=== PATIENT | female | born 1975 | race Hispanic/Latino ===

== ENCOUNTER 2020-11-09 10:01 | Inpatient (IN) | payer SELFPAY ==
[~2020-11-09] VITALS: Ht 152.4 cm; Wt 56.8 kg
[~2020-11-09 10:01] MED LIST: AMOX-429 PO; LISI20TA24 PO
[2020-11-09] MEDS ORDERED: ONDANSETRON HCL 4 MG/2 ML VIAL ONE ×2 (10:40→19:54)
[2020-11-09] MEDS ORDERED: MORPHINE SULFATE 4 MG/1ML SYG ONE ×2 (10:41→13:57)
[2020-11-09 10:44] LABS: BASOPHILS % (AUTO) 0.1 % (0.0-5.0); EOSINOPHILS % (AUTO) 0.9 % (0.0-8.0); HEMATOCRIT 39.4 % (36-48); MEAN CORPUSCULAR HEMOGLOBIN 31.3 pg (27.0-33.0); MEAN CORPUSCULAR HGB CONC 34.3 g/dL (32.0-36.0); MEAN CORPUSCULAR VOLUME 91.4 fL (79-99); MONOCYTES % (AUTO) 3.3 % (3.0-13.0); NEUTROPHILS % (AUTO) 86.3 % (40.0-77.0); PLATELET COUNT (AUTO) 322 K/uL (130-400); RED BLOOD CELL COUNT(AUTO) 4.31 MIL/uL (4.00-5.50); RED CELL DISTRIBUTION WIDTH 12.1 % (11.0-15.5); WHITE BLOOD COUNT (AUTO) 18.4 K/uL (4.8-10.8)
[2020-11-09] MEDS ORDERED: SODIUM CHLORIDE 0.9% 1000ML 1,000 ML IV ONE (10:45)
[2020-11-09 10:56] LABS: APPEARANCE,URINE Clear (CLEAR); BILIRUBIN,URINE Negative (NEGATIVE); COLOR,URINE Yellow (YELLOW); GLUCOSE, URINE (UA) Negative (NEGATIVE); KETONES,URINE Trace mg/dL (NEGATIVE); LEUKOCYTE ESTERASE ,URINE Negative (NEGATIVE); NITRATE,URINE Negative (NEGATIVE); OCCULT BLOOD,URINE Negative (NEGATIVE); PROTEIN,URINE Negative (NEGATIVE); UROBILINOGEN,URINE 0.2 mg/dL (0.2-1.0)
[2020-11-09 10:58] LABS: HCG,QUAL RESULT NEGATIVE (NEGATIVE)
[2020-11-09 11:16] LABS: CREATININE 0.7 mg/dL (0.5-1.5)
[2020-11-09 11:20] LABS: ALBUMIN 4.1 g/dL (3.5-5.0); BILIRUBIN,TOTAL 0.9 mg/dL (0.2-1.0); TOTAL PROTEIN, SERUM 8.4 g/dL (6.0-8.3)
[2020-11-09] MEDS ORDERED: ZOSYN 3.375GM+NS 50ML 50 ML IV ONE ×2 (11:33→19:55)
[2020-11-09 11:47] LABS: BACTERIA,URINE Rare /HPF (None Seen); RBC,URINE 0-1 /HPF (0-1); WBC,URINE 0-1 /HPF (0-1)
[2020-11-09 11:48] LABS: SQUAMOUS EPITHELIAL CELL,UR Rare /HPF (0-2)
[2020-11-09] MEDS ORDERED: IOHEXOL-350 75 ML VIAL IV ONE (13:07)
[2020-11-09] MEDS ORDERED: ACETAMINOPHEN 325 MG TAB PO PRN (17:45)
[2020-11-09] MEDS ORDERED: ONDANSETRON HCL 4 MG/2 ML VIAL IVP PRN (17:45)
[2020-11-09] MEDS ORDERED: MORPHINE SULFATE 2 MG/ML 1ML SYG ONE (19:55)
[2020-11-10] MEDS ORDERED: MORPHINE SULFATE 2 MG/ML 1ML SYG ONE ×2 (00:22→04:17)
[2020-11-10] MEDS ORDERED: KETOROLAC TROMETHAMINE 15MG/ML IM PRN (02:15)
[2020-11-10] MEDS: SODIUM CHLORIDE 0.9% 1000ML 1,000 ML IV SCH ×2 (03:45→13:57)
[2020-11-10] MEDS ORDERED: ZOSYN 3.375GM+NS 50ML 50 ML IV ONE (04:16)
[2020-11-10 04:29] LABS: AMPHET/METH SCREEN,URINE NEGATIVE (NEGATIVE); BARBITURATE SCREEN, URINE NEGATIVE (NEGATIVE); BENZODIAZEPINES SCREEN,URINE NEGATIVE (NEGATIVE); CANNABINOID SCREEN,URINE NEGATIVE (NEGATIVE); COCAINE SCREEN,URINE POSITIVE (NEGATIVE); OPIATE SCREEN,URINE NEGATIVE (NEGATIVE); PHENCYCLIDINE SCREEN,URINE NEGATIVE (NEGATIVE)
[2020-11-10 04:33] LABS: BASOPHILS % (AUTO) 0.1 % (0.0-5.0); EOSINOPHILS % (AUTO) 3.2 % (0.0-8.0); HEMATOCRIT 30.7 % (36-48); MEAN CORPUSCULAR HEMOGLOBIN 31.8 pg (27.0-33.0); MEAN CORPUSCULAR HGB CONC 34.2 g/dL (32.0-36.0); MONOCYTES % (AUTO) 6.2 % (3.0-13.0); NEUTROPHILS % (AUTO) 54.1 % (40.0-77.0); PLATELET COUNT (AUTO) 244 K/uL (130-400); RED CELL DISTRIBUTION WIDTH 12.3 % (11.0-15.5); WHITE BLOOD COUNT (AUTO) 7.7 K/uL (4.8-10.8)
[2020-11-10 04:41] LABS: CREATININE 0.6 mg/dL (0.5-1.5); POTASSIUM 3.1 mmol/L (3.5-5.1)
[2020-11-10 04:46] LABS: CRP QUANTITATIVE 23.9 mg/L (0.00-9.0)
[2020-11-10] MEDS ORDERED: POTASSIUM CHLORIDE 20MEQ/100ML 100 ML IV PRN (08:00)
[2020-11-10] MEDS ORDERED: POTASSIUM CHLORIDE 20 MEQ ERTAB PO PRN (08:00)
[2020-11-10 08:25] VITALS: BP 97/56
[2020-11-10] MEDS: POTASSIUM CHLORIDE 10% ELIXIR 20 MEQ/15 ML UDCUP PO PRN ×3 (08:47→16:57)
[2020-11-10] MEDS: ZOSYN 3.375GM+NS 50ML 50 ML IV SCH ×2 (09:38→12:04)
[2020-11-10 10:26] LABS: ALANINE AMINOTRANSFERASE 17 U/L (12-78); ASPARTATE AMINOTRANSFERASE 18 U/L (10-37); BILIRUBIN,DIRECT < 0.1 mg/dL (0.0-0.3); BILIRUBIN,TOTAL 0.3 mg/dL (0.2-1.0); TOTAL PROTEIN, SERUM 5.7 g/dL (6.0-8.3)
[2020-11-10] MEDS: MORPHINE SULFATE 2 MG/ML 1ML SYG IVP PRN ×3 (10:35→23:33)
[2020-11-10 11:13] VITALS: BP 83/44
[2020-11-10 16:05] VITALS: BP 91/53
[2020-11-10 19:52] VITALS: BP 105/68
[2020-11-10 23:03] VITALS: BP 93/53
[2020-11-11] MEDS: ZOSYN 3.375GM+NS 50ML 50 ML IV SCH ×2 (02:02→10:00)
[2020-11-11 03:15] VITALS: BP 82/56
[2020-11-11] MEDS: SODIUM CHLORIDE 0.9% 1000ML 1,000 ML IV SCH ×2 (04:43→09:45)
[2020-11-11] MEDS: MORPHINE SULFATE 2 MG/ML 1ML SYG IVP PRN (05:59)
[2020-11-11 06:18] LABS: BASOPHILS % (AUTO) 0.2 % (0.0-5.0); EOSINOPHILS % (AUTO) 3.2 % (0.0-8.0); HEMATOCRIT 28.8 % (36-48); LYMPHOCYTES % (AUTO) 55.1 % (21.0-51.0); MEAN CORPUSCULAR HEMOGLOBIN 31.2 pg (27.0-33.0); MEAN CORPUSCULAR HGB CONC 33.3 g/dL (32.0-36.0); MEAN CORPUSCULAR VOLUME 93.5 fL (79-99); NEUTROPHILS % (AUTO) 32.3 % (40.0-77.0); PLATELET COUNT (AUTO) 209 K/uL (130-400); RED BLOOD CELL COUNT(AUTO) 3.08 MIL/uL (4.00-5.50); RED CELL DISTRIBUTION WIDTH 12.4 % (11.0-15.5); WHITE BLOOD COUNT (AUTO) 6.2 K/uL (4.8-10.8)
[2020-11-11 06:31] LABS: ALBUMIN 2.7 g/dL (3.5-5.0); BILIRUBIN,TOTAL 0.4 mg/dL (0.2-1.0); CREATININE 0.7 mg/dL (0.5-1.5); POTASSIUM 3.1 mmol/L (3.5-5.1); TOTAL PROTEIN, SERUM 5.6 g/dL (6.0-8.3)
[2020-11-11] MEDS ORDERED: POTASSIUM CHLORIDE 10% ELIXIR 20 MEQ/15 ML UDCUP PO SCH (07:15)
[2020-11-11 07:58] VITALS: BP 85/42
== END 2020-11-11 13:55 | disposition home or self-care (01) | DRG 446 ==
LOC: EDH 10:01 → OBSVTOIN 10:02 → EDHIP 10:02 → 3BH 11-10 08:05
PROVIDERS: ADMIT Family Medicine; ATTEND Family Medicine
DX: K83.09 Other cholangitis (principal); Z20.822 Contact with and (suspected) exposure to COVID-19; I10 Essential (primary) hypertension; F43.10 Post-traumatic stress disorder, unspecified; D72.829 Elevated white blood cell count, unspecified; F17.200 Nicotine dependence, unspecified, uncomplicated; Z90.49 Acquired absence of other specified parts of digestive tract; Z83.3 Family history of diabetes mellitus
CPT/HCPCS: 36415; 74177; 76705; 80048; 80053; 80076; 80305; 81001; 81025; 82150; 82550; 83605; 83690; 83735; 84145; 85025; 86140; 87040; 87426; 93005; G0378; J1885; J2270; J2405; J2543; J7030; Q9967; U0003

== ENCOUNTER 2021-12-16 13:15 | Inpatient (IN) | payer OTHER ==
[~2021-12-16] VITALS: Ht 152.4 cm; Wt 54.7 kg
[~2021-12-16 13:15] MED LIST changes: -AMOX-429 PO
[2021-12-16] MEDS ORDERED: ALBUTEROL 0.083% 2.5 MG/3 ML INH IH ONE ×2 (13:44→14:00)
[2021-12-16] MEDS ORDERED: IPRATROPIUM/ALBUTEROL SULFATE 3 ML SOLUTION IH ONE ×2 (13:44→14:00)
[2021-12-16 14:00] LABS: BASOPHILS % (AUTO) 0.2 % (0.0-5.0); EOSINOPHILS % (AUTO) 0.4 % (0.0-8.0); HEMATOCRIT 42.7 % (36-48); LYMPHOCYTES % (AUTO) 10.4 % (21.0-51.0); MEAN CORPUSCULAR HEMOGLOBIN 31.6 pg (27.0-33.0); MEAN CORPUSCULAR HGB CONC 33.5 g/dL (32.0-36.0); MEAN CORPUSCULAR VOLUME 94.3 fL (79-99); MONOCYTES % (AUTO) 1.1 % (3.0-13.0); NEUTROPHILS % (AUTO) 87.2 % (40.0-77.0); PLATELET COUNT (AUTO) 317 K/uL (130-400); RED BLOOD CELL COUNT(AUTO) 4.53 MIL/uL (4.00-5.50); RED CELL DISTRIBUTION WIDTH 12.3 % (11.0-15.5)
[2021-12-16] MEDS ORDERED: KETOROLAC 30MG VIAL (30MG/ML) IV ONE (14:00)
[2021-12-16] MEDS ORDERED: AMOX/CLAV 875/125MG TAB PO ONE (14:00)
[2021-12-16] MEDS ORDERED: LACTATED RINGERS 1000ML 1,000 ML IV ONE ×2 (14:00→15:59)
[2021-12-16] MEDS ORDERED: AZITHROMYCIN 250 MG TABLET PO ONE ×2 (14:00→15:49)
[2021-12-16] MEDS ORDERED: ACETAMINOPHEN 500 MG TABLET PO ONE (14:00)
[2021-12-16] MEDS ORDERED: CYCLOBENZAPRINE HCL 10 MG TABLET PO ONE (14:00)
[2021-12-16] MEDS ORDERED: ONDANSETRON 4MG INJ IVP ONE (14:00)
[2021-12-16] MEDS ORDERED: GUAIFENESIN-DM 200/20 MG 10 ML PO ONE (14:00)
[2021-12-16 14:11] LABS: CREATININE 0.7 mg/dL (0.5-1.5); POTASSIUM 3.4 mmol/L (3.5-5.1)
[2021-12-16 14:15] LABS: ALBUMIN 3.1 g/dL (3.5-5.0); BILIRUBIN,TOTAL 0.3 mg/dL (0.2-1.0); TOTAL PROTEIN, SERUM 6.4 g/dL (6.0-8.3)
[2021-12-16] MEDS ORDERED: ASPIRIN 325MG TAB ONE (14:24)
[2021-12-16] MEDS ORDERED: NITROGLYCERIN 1GM OINT 1 INCH/1GM TD ONE (14:30)
[2021-12-16] MEDS ORDERED: ASPIRIN 325MG TAB PO ONE (14:30)
[2021-12-16] MEDS ORDERED: POTASSIUM BICARB/CIT AC 25 MEQ TABLET.EFF PO ONE (15:00)
[2021-12-16 15:01] LABS: APPEARANCE,URINE Clear (CLEAR); BILIRUBIN,URINE Negative (NEGATIVE); COLOR,URINE Yellow (YELLOW); GLUCOSE, URINE (UA) Negative (NEGATIVE); KETONES,URINE Negative (NEGATIVE); LEUKOCYTE ESTERASE ,URINE Trace (NEGATIVE); NITRATE,URINE Negative (NEGATIVE); OCCULT BLOOD,URINE Negative (NEGATIVE); PH,URINE 5.5 (5.0-8.0); PROTEIN,URINE Negative (NEGATIVE); UROBILINOGEN,URINE 0.2 mg/dL (0.2-1.0)
[2021-12-16 15:06] LABS: AMPHET/METH SCREEN,URINE NEGATIVE (NEGATIVE); BARBITURATE SCREEN, URINE NEGATIVE (NEGATIVE); BENZODIAZEPINES SCREEN,URINE NEGATIVE (NEGATIVE); CANNABINOID SCREEN,URINE NEGATIVE (NEGATIVE); COCAINE SCREEN,URINE POSITIVE (NEGATIVE); OPIATE SCREEN,URINE NEGATIVE (NEGATIVE); PHENCYCLIDINE SCREEN,URINE NEGATIVE (NEGATIVE)
[2021-12-16 15:11] LABS: BACTERIA,URINE Rare /HPF (None Seen); MUCUS,URINE Rare LPF (None Seen); RBC,URINE 0-1 /HPF (0-1); SQUAMOUS EPITHELIAL CELL,UR Few /HPF (0-2); WBC,URINE 0-1 /HPF (0-1)
[2021-12-16] MEDS ORDERED: LORAZEPAM 2 MG/ML 1 ML VIAL IVP ONE (15:30)
[2021-12-16] MEDS ORDERED: CYCLOBENZAPRINE HCL 10 MG TABLET ONE (15:47)
[2021-12-16] MEDS ORDERED: ONDANSETRON 4MG INJ ONE (15:47)
[2021-12-16] MEDS ORDERED: ACETAMINOPHEN 500 MG TABLET ONE (15:49)
[2021-12-16] MEDS: CEFTRIAXONE 1G VIAL ONE ×2 (15:56→16:02)
[2021-12-16] MEDS ORDERED: CEFTRIAXONE 1G VIAL IVP ONE (16:00)
[2021-12-16 16:48] LABS: THYROID STIMULATING HORMONE 0.85 uIU/mL (0.36-3.74)
[2021-12-16] MEDS ORDERED: PANTOPRAZOLE 40 MG/VIAL IVP ONE (17:30)
[2021-12-16] MEDS ORDERED: SODIUM CHLORIDE 3% FOR INHALATION 4 ML/AMP VIAL.NEB IH ONE (18:46)
[2021-12-16] MEDS: PANTOPRAZOLE 40 MG TAB DR PO SCH (19:13)
[2021-12-16] MEDS ORDERED: MIDODRINE HCL 5 MG TABLET PO SCH (20:00)
[2021-12-16] MEDS ORDERED: CEFEPIME HCL 2 GM VIAL IVP SCH (21:00)
[2021-12-16] MEDS ORDERED: DOXYCYCLINE HYCLATE 100 MG TABLET PO SCH (21:00)
[2021-12-16] MEDS ORDERED: NOREPINEPHRIN 4MG/NS 250ML 250 ML IV ONE (21:02)
[2021-12-16] MEDS ORDERED: NOREPINEPHRIN 4MG/NS 250ML 250 ML IV SCH (21:30)
[2021-12-16] MEDS ORDERED: PHENYLEPHRINE HCL 10 MG in 0.9% NACL 250ML 250 ML IV PRN (21:30)
[2021-12-16] MEDS ORDERED: 0.9%NACL 100ML 100 ML ONE (21:37)
[2021-12-16] MEDS: LACTATED RINGERS 1000ML 1,000 ML IV SCH (21:51)
[2021-12-16 22:41] VITALS: BP 133/77
[2021-12-16 22:46] VITALS: BP 125/75
[2021-12-16 23:01] VITALS: BP 125/75
[2021-12-16 23:16] VITALS: BP 156/63
[2021-12-16 23:31] VITALS: BP 120/79
[2021-12-16 23:46] VITALS: BP 121/75
[2021-12-17] VITALS (68 sets, daily range): BP systolic 90–133; BP diastolic 49–76
[2021-12-17] MEDS: LACTATED RINGERS 1000ML 1,000 ML IV SCH ×2 (05:33→14:02)
[2021-12-17 06:10] LABS: BASOPHILS % (AUTO) 0.3 % (0.0-5.0); EOSINOPHILS % (AUTO) 0.5 % (0.0-8.0); HEMATOCRIT 33.8 % (36-48); MEAN CORPUSCULAR HEMOGLOBIN 32.4 pg (27.0-33.0); MEAN CORPUSCULAR HGB CONC 33.7 g/dL (32.0-36.0); MONOCYTES % (AUTO) 3.3 % (3.0-13.0); NEUTROPHILS % (AUTO) 74.4 % (40.0-77.0); PLATELET COUNT (AUTO) 296 K/uL (130-400); RED BLOOD CELL COUNT(AUTO) 3.52 MIL/uL (4.00-5.50); RED CELL DISTRIBUTION WIDTH 12.7 % (11.0-15.5); WHITE BLOOD COUNT (AUTO) 17.3 K/uL (4.8-10.8)
[2021-12-17 06:42] LABS: ALBUMIN 2.7 g/dL (3.5-5.0); BILIRUBIN,TOTAL 1.1 mg/dL (0.2-1.0); CREATININE 0.5 mg/dL (0.5-1.5); POTASSIUM 3.5 mmol/L (3.5-5.1); TOTAL PROTEIN, SERUM 5.8 g/dL (6.0-8.3)
[2021-12-17] MEDS ORDERED: SODIUM CHLORIDE 3% FOR INHALATION 4 ML/AMP VIAL.NEB IH ONE (06:50)
[2021-12-17 07:52] LABS: HEMOGLOBIN A1C 5.2 % (4.0-6.0)
[2021-12-17 08:00] LABS: B-TYPE NATRIURETIC PEPTIDE 10 pg/mL (0-100)
[2021-12-17] MEDS ORDERED: LORAZEPAM 2 MG/ML 1 ML VIAL IVP PRN (08:00)
[2021-12-17] MEDS ORDERED: DIAZEPAM 5 MG TABLET PO PRN (08:00)
[2021-12-17] MEDS ORDERED: 0.9% NACL 500ML IV.SOLN 500 ML IV ONE (08:00)
[2021-12-17 08:46] LABS: ERYTHROCYTE SEDIMENTATION RATE 8 MM/HR (0-20)
[2021-12-17] MEDS ORDERED: M.V.I. IV [ADULT] 10 ML, FOLIC ACID 1 MG, THIAMINE HCL 100 MG in 0.9%NACL 1000ML 1,000 ML IV SCH (09:00)
[2021-12-17] MEDS ORDERED: THIAMINE HCL 100 MG TABLET PO SCH (09:00)
[2021-12-17] MEDS ORDERED: MULTIVITAMIN TABLET PO SCH (09:00)
[2021-12-17] MEDS: PANTOPRAZOLE 40 MG TAB DR PO SCH (09:14)
[2021-12-17] MEDS: MIDODRINE HCL 5 MG TABLET PO SCH ×2 (09:15→14:02)
[2021-12-17] MEDS ORDERED: FOLIC ACID 1 MG TABLET PO SCH (09:30)
[2021-12-17] MEDS ORDERED: LACTULOSE 20 GM/30 ML UDCUP PO PRN (13:00)
[2021-12-17] MEDS ORDERED: THIA100T91 PO (16:47)
[2021-12-17] MEDS ORDERED: FOLI1 PO (16:47)
[2021-12-17] MEDS ORDERED: MVIT PO (16:47)
[2021-12-17] MEDS ORDERED: BUPR150T8 PO (17:08)
[2021-12-18] MEDS ORDERED: FOLIC ACID 1 MG TABLET PO SCH (09:00)
== END 2021-12-17 18:00 | disposition home or self-care (01) | DRG 871 ==
LOC: EDH 13:15 → EDHIP 13:16 → 2CH 22:31
PROVIDERS: ADMIT Internal Medicine; ATTEND Internal Medicine
DX: A41.9 Sepsis, unspecified organism (principal); E43 Unspecified severe protein-calorie malnutrition; J96.01 Acute respiratory failure with hypoxia; R65.21 Severe sepsis with septic shock; N39.0 Urinary tract infection, site not specified; E72.20 Disorder of urea cycle metabolism, unspecified; A15.0 Tuberculosis of lung; Z68.23 Body mass index [BMI] 23.0-23.9, adult; Z20.822 Contact with and (suspected) exposure to COVID-19; F43.10 Post-traumatic stress disorder, unspecified; E86.0 Dehydration; E86.1 Hypovolemia; I45.10 Unspecified right bundle-branch block; F14.10 Cocaine abuse, uncomplicated; F17.210 Nicotine dependence, cigarettes, uncomplicated; F10.10 Alcohol abuse, uncomplicated; E87.6 Hypokalemia; I10 Essential (primary) hypertension; Z79.899 Other long term (current) drug therapy; Z90.710 Acquired absence of both cervix and uterus; Z90.49 Acquired absence of other specified parts of digestive tract; Z82.3 Family history of stroke; Z83.3 Family history of diabetes mellitus; Z82.5 Family history of asthma and other chronic lower respiratory diseases; Z82.49 Family history of ischemic heart disease and other diseases of the circulatory system; Z80.9 Family history of malignant neoplasm, unspecified
CPT/HCPCS: 36415; 71045; 71250; 80053; 80061; 80305; 81001; 82140; 82533; 82550; 83036; 83605; 83735; 83874; 83880; 84145; 84443; 84484; 84703; 85025; 85651; 86140; 87040; 87088; 87635; 87804; 93005; 94640; G0378; J0692; J0696; J2060; J2405; J3411; J3490; J7030; J7120

== ENCOUNTER 2023-01-16 23:12 | Emergency (ER) | payer OTHER ==
[~2023-01-16] VITALS: Ht 152.4 cm; Wt 59.0 kg
[~2023-01-16 23:12] MED LIST changes: +BUPR-113 PO; +FOLI1 PO; -LISI20TA24 PO; +MVIT PO; +THIA100T91 PO
[2023-01-16 23:17] VITALS: BP 137/80
== END 2023-01-17 00:17 ==
LOC: EDH 23:12
DX: Z02.89 Encounter for other administrative examinations (principal); Z90.49 Acquired absence of other specified parts of digestive tract; Z98.890 Other specified postprocedural states

== ENCOUNTER 2023-07-21 18:52 | Emergency (ER) | payer OTHER ==
[~2023-07-21] VITALS: Ht 152.4 cm; Wt 72.6 kg
[2023-07-21] MEDS ORDERED: KETOROLAC 30MG VIAL (30MG/ML) IVP ONE (20:00)
[2023-07-21 20:31] LABS: APPEARANCE,URINE CLEAR (CLEAR); BILIRUBIN,URINE NEGATIVE (NEGATIVE); COLOR,URINE LIGHT-YELLOW (YELLOW); GLUCOSE, URINE (UA) NEGATIVE (NEGATIVE); KETONES,URINE NEGATIVE (NEGATIVE); LEUKOCYTE ESTERASE ,URINE 250 Leu/uL (NEGATIVE); NITRATE,URINE NEGATIVE (NEGATIVE); OCCULT BLOOD,URINE NEGATIVE (NEGATIVE); PH,URINE 6.5 (5.0-8.0); PROTEIN,URINE NEGATIVE (NEGATIVE); UROBILINOGEN,URINE 0.2 mg/dL (0.2-1.0)
[2023-07-21 20:33] LABS: ADD UA MICROSCOPIC YES
[2023-07-21] MEDS ORDERED: IBUP-1493 PO (20:34)
[2023-07-21 20:36] LABS: BACTERIA,URINE RARE /HPF (None Seen); MUCUS,URINE RARE LPF (None Seen); OTHER CASTS, URINE 1 /LPF (None Seen); SQUAMOUS EPITHELIAL CELL,UR MOD /HPF (0-2)
[2023-07-21 20:37] LABS: BASOPHILS # (AUTO) 0.03 K/uL (0.00-0.20); BASOPHILS % (AUTO) 0.3 % (0.0-5.0); EOSINOPHILS # (AUTO) 0.09 K/uL (0.00-0.70); HEMATOCRIT 34.9 % (36-48); IMMATURE GRANULOCYTE ABSOLUTE 0.04 K/uL (0-1); LYMPHOCYTES # (AUTO) 3.2 K/uL (1.0-4.8); LYMPHOCYTES % (AUTO) 34.4 % (21.0-51.0); MEAN CORPUSCULAR HGB CONC 35.5 g/dL (32.0-36.0); MEAN CORPUSCULAR VOLUME 89.9 fL (79-99); MONOCYTES # (AUTO) 0.7 K/uL (0.1-1.0); MONOCYTES % (AUTO) 7.5 % (3.0-13.0); NEUTROPHILS # (AUTO) 5.3 K/uL (1.8-7.7); NEUTROPHILS % (AUTO) 56.4 % (40.0-77.0); PLATELET COUNT (AUTO) 343 K/uL (130-400); RED BLOOD CELL COUNT(AUTO) 3.88 MIL/uL (4.00-5.50); RED CELL DISTRIBUTION WIDTH 11.9 % (11.0-15.5); WHITE BLOOD COUNT (AUTO) 9.4 K/uL (4.8-10.8)
[2023-07-21 20:39] LABS: AMPHET/METH SCREEN,URINE NEGATIVE (NEGATIVE); BARBITURATE SCREEN, URINE NEGATIVE (NEGATIVE); BENZODIAZEPINES SCREEN,URINE NEGATIVE (NEGATIVE); CANNABINOID SCREEN,URINE NEGATIVE (NEGATIVE); COCAINE SCREEN,URINE NEGATIVE (NEGATIVE); OPIATE SCREEN,URINE NEGATIVE (NEGATIVE); PHENCYCLIDINE SCREEN,URINE NEGATIVE (NEGATIVE)
[2023-07-21 20:39] LABS: INFLUENZA TYPE A Negative For Type A (NEGATIVE); INFLUENZA TYPE B Negative For Type B (NEGATIVE)
[2023-07-21 20:52] LABS: SARS-CoV-2, RNA, NAAT NEGATIVE SARS CoV-2 (NEGATIVE)
[2023-07-21 20:53] LABS: CREATININE 0.6 mg/dL (0.5-1.5); POTASSIUM 3.9 mmol/L (3.5-5.1)
[2023-07-21 20:57] LABS: ALBUMIN 3.7 g/dL (3.5-5.0); BILIRUBIN,TOTAL 0.2 mg/dL (0.2-1.0)
[2023-07-21 21:17] VITALS: BP 124/76; PULSE 78; RESP 18; O2SAT 99
== END 2023-07-21 21:20 | disposition home or self-care (01) ==
LOC: EEVIPCON 18:52 → EDH 18:52
DX: R51.9 Headache, unspecified (principal); I25.10 Atherosclerotic heart disease of native coronary artery without angina pectoris; I10 Essential (primary) hypertension; F32.A Depression, unspecified; Z90.49 Acquired absence of other specified parts of digestive tract; Z20.822 Contact with and (suspected) exposure to COVID-19
CPT/HCPCS: 99284; 96374; 87635; 84484; 80053; 80305; 85025; 87088; 87804 ×2; 81001; 36415; 93005; C9803; J1885

== ENCOUNTER 2023-08-23 20:06 | Emergency (ER) | payer OTHER ==
[~2023-08-23] VITALS: Ht 152.4 cm; Wt 81.6 kg
[~2023-08-23 20:06] MED LIST changes: +IBUP-1493 PO
[2023-08-23 20:30] LABS: BASOPHILS # (AUTO) 0.03 K/uL (0.00-0.20); BASOPHILS % (AUTO) 0.3 % (0.0-5.0); EOSINOPHILS # (AUTO) 0.05 K/uL (0.00-0.70); EOSINOPHILS % (AUTO) 0.4 % (0.0-8.0); HEMATOCRIT 38.4 % (36-48); IMMATURE GRANULOCYTE ABSOLUTE 0.05 K/uL (0-1); LYMPHOCYTES # (AUTO) 3.5 K/uL (1.0-4.8); LYMPHOCYTES % (AUTO) 29.8 % (21.0-51.0); MEAN CORPUSCULAR HEMOGLOBIN 32.1 pg (27.0-33.0); MEAN CORPUSCULAR HGB CONC 33.9 g/dL (32.0-36.0); MEAN CORPUSCULAR VOLUME 94.8 fL (79-99); MONOCYTES # (AUTO) 0.7 K/uL (0.1-1.0); MONOCYTES % (AUTO) 6.1 % (3.0-13.0); NEUTROPHILS # (AUTO) 7.4 K/uL (1.8-7.7); PLATELET COUNT (AUTO) 322 K/uL (130-400); RED BLOOD CELL COUNT(AUTO) 4.05 MIL/uL (4.00-5.50); RED CELL DISTRIBUTION WIDTH 12.2 % (11.0-15.5); WHITE BLOOD COUNT (AUTO) 11.8 K/uL (4.8-10.8)
[2023-08-23] MEDS ORDERED: ONDANSETRON 4MG INJ IVP ONE (20:30)
[2023-08-23] MEDS ORDERED: 0.9%NACL 1000ML 1,000 ML IV ONE (20:30)
[2023-08-23] MEDS ORDERED: MORPHINE 2 MG SYG IVP ONE (20:30)
[2023-08-23] MEDS ORDERED: FAMOTIDINE 20MG VIAL IV ONE (20:30)
[2023-08-23 20:41] LABS: CREATININE 0.7 mg/dL (0.5-1.5); POTASSIUM 4.3 mmol/L (3.5-5.1)
[2023-08-23 20:44] LABS: APPEARANCE,URINE CLEAR (CLEAR); BILIRUBIN,URINE NEGATIVE (NEGATIVE); COLOR,URINE LIGHT-YELLOW (YELLOW); GLUCOSE, URINE (UA) NEGATIVE (NEGATIVE); KETONES,URINE NEGATIVE (NEGATIVE); LEUKOCYTE ESTERASE ,URINE NEGATIVE Leu/uL (NEGATIVE); NITRATE,URINE NEGATIVE (NEGATIVE); OCCULT BLOOD,URINE NEGATIVE (NEGATIVE); PROTEIN,URINE NEGATIVE (NEGATIVE); UROBILINOGEN,URINE 0.2 mg/dL (0.2-1.0)
[2023-08-23 20:45] LABS: ADD UA MICROSCOPIC YES
[2023-08-23 20:45] LABS: ALBUMIN 3.7 g/dL (3.5-5.0); BILIRUBIN,TOTAL 0.3 mg/dL (0.2-1.0); TOTAL PROTEIN, SERUM 8.4 g/dL (6.0-8.3)
[2023-08-23 20:46] LABS: BACTERIA,URINE RARE /HPF (None Seen); MUCUS,URINE RARE LPF (None Seen); RBC,URINE 0-1 /HPF (0-1); SQUAMOUS EPITHELIAL CELL,UR RARE /HPF (0-2); YEAST,URINE BUDDING FEW /HPF (None Seen)
[2023-08-23 21:36] LABS: AMPHET/METH SCREEN,URINE NEGATIVE (NEGATIVE); BARBITURATE SCREEN, URINE NEGATIVE (NEGATIVE); BENZODIAZEPINES SCREEN,URINE NEGATIVE (NEGATIVE); CANNABINOID SCREEN,URINE NEGATIVE (NEGATIVE); COCAINE SCREEN,URINE NEGATIVE (NEGATIVE); OPIATE SCREEN,URINE NEGATIVE (NEGATIVE); PHENCYCLIDINE SCREEN,URINE NEGATIVE (NEGATIVE)
[2023-08-23] MEDS ORDERED: MECL-302 PO (22:01)
[2023-08-23] MEDS ORDERED: FAMO-136 PO (22:01)
[2023-08-23 22:08] VITALS: BP 106/61; PULSE 62; RESP 17; O2SAT 98
== END 2023-08-23 22:23 | disposition home or self-care (01) ==
LOC: EEVIPCON 20:06 → EDH 20:06
DX: K29.00 Acute gastritis without bleeding (principal); G44.209 Tension-type headache, unspecified, not intractable; I10 Essential (primary) hypertension; Z79.899 Other long term (current) drug therapy; Z90.49 Acquired absence of other specified parts of digestive tract; Z90.89 Acquired absence of other organs; Z90.710 Acquired absence of both cervix and uterus; Z98.890 Other specified postprocedural states
CPT/HCPCS: 99285; 96374; 70450; 96375; 96361; 80053; 80305; 83690; 85025; 36415; 81001; J3490; J2270; J7030; J2405